=== PATIENT | male | born 1990 | race African-American/Black ===

== ENCOUNTER 2018-04-07 13:22 | Emergency (ER) | payer MEDICAID ==
[~2018-04-07] VITALS: Ht 172.7 cm; Wt 80.0 kg
[2018-04-07 14:00] VITALS: BP 133/99
== END 2018-04-07 15:03 | disposition left against medical advice (07) ==
LOC: ER 13:41
DX: T54.91XA Toxic effect of unspecified corrosive substance, accidental (unintentional), initial encounter (principal); F12.10 Cannabis abuse, uncomplicated; F15.10 Other stimulant abuse, uncomplicated; Y92.89 Other specified places as the place of occurrence of the external cause
CPT/HCPCS: 99283